=== PATIENT | male | born 1995 ===

== ENCOUNTER 2018-12-17 17:31 | Emergency (ER) | payer BC ==
[2018-12-17 18:18] VITALS: BP 121/65
[2018-12-17 19:00] LABS: Influenza A Molecular NEGATIVE (Negative); Influenza B Molecular NEGATIVE (Negative)
--- NOTE | 2018-12-17 19:00 | UC ---
FLU HPI - HPI Summary HPI Summary: 23-year-old male presents onset of general malaise, fatigue, mild headache and body aches this morning. Denies fever, chills, rash, nasal congestion, runny nose, sore throat, ear pain, cough, abdominal pain, nausea, vomiting, diarrhea, dysuria, frequency, urgency, or recent tick bite. - History of Current Complaint Chief Complaint: UCRespiratory Stated Complaint: FEVER Time Seen by Provider: 12/17/18 18:13 Hx Obtained From: Patient Pain Intensity: 7 - Allergy/Home Medications Allergies/Adverse Reactions: Allergies Allergy/AdvReac Type Severity Reaction Status Date / Time No Known Allergies Allergy Verified 12/17/18 18:18 Home Medications: Home Medications Ibuprofen TAB* [Advil TAB*] 400 mg PO Q6HR PRN 12/17/18 [History Confirmed 12/17] PMH/Surg Hx/FS Hx/Imm Hx Previously Healthy: Yes - Denies signignificant PMH - Surgical History Surgical History: None - Family History Known Family History: Positive: Non-Contributory - Social History Occupation: Employed Full-time Lives: With Family Alcohol Use: Occasionally Substance Use Type: None Smoking Status (MU): Former Smoker When Did the Patient Quit Smoking/Using Tobacco: one year ago Review of Systems All Other Systems Reviewed And Are Negative: Yes Constitutional: Positive: Fatigue, Other - Malaise. Negative: Fever, Chills Skin: Negative: Rash ENT: Negative: Sore Throat, Ear Ache, Nasal Discharge, Sinus Congestion Respiratory: Negative: Shortness Of Breath, Cough Cardiovascular: Negative: Palpitations, Chest Pain Gastrointestinal: Negative: Abdominal Pain, Vomiting, Diarrhea, Nausea Genitourinary: Negative: Dysuria, Hematuria, Frequency, Urgency Musculoskeletal: Negative: Arthralgia, Myalgia Neurological: Positive: Headache Is Patient Immunocompromised?: No Physical Exam - Summary Physical Exam Summary: GENERAL APPEARANCE: Well developed, well nourished, alert and cooperative, and appears to be in no acute distress. EYES: Conjunctiva clear. No drainage. Vision is grossly intact. EARS: External auditory canals and tympanic membranes clear, hearing grossly intact. NOSE: No nasal discharge. THROAT: Pharynx normal. No tonsilar inflammation, swelling, exudate, or lesions. Uvula midline. Oral cavity normal. Teeth and gingiva in good general condition. NECK: Neck supple, non-tender without lymphadenopathy. CARDIAC: Normal S1 and S2. No S3, S4 or murmurs. Rhythm is regular. There is no peripheral edema, cyanosis or pallor. Extremities are warm and well perfused. Capillary refill is less than 2 seconds. Peripheral pulses intact. LUNGS: Clear to auscultation without rales, rhonchi, wheezing or diminished breath sounds. ABDOMEN: Positive bowel sounds. Soft, nondistended, nontender. No guarding or rebound. No masses or hepatosplenomegally. MUSKULOSKELETAL: ROM intact to all extremities. No joint erythema or tenderness. Normal muscular development. Normal gait. SKIN: Skin normal color, texture and turgor with no lesions or eruptions. Triage Information Reviewed: Yes Vital Signs: Initial Vital Signs Temp 100.9 F 12/17/18 18:11 Pulse 78 12/17/18 18:11 Resp 14 12/17/18 18:11 BP 121/65 12/17/18 18:11 Pulse Ox 100 12/17/18 18:11 Vital Signs Reviewed: Yes Flu Course/Dx - Course Course Of Treatment: 23-year-old male presents onset of general malaise, fatigue, mild headache and body aches this morning. Denies fever, chills, rash, nasal congestion, runny nose, sore throat, ear pain, cough, abdominal pain, nausea, vomiting, diarrhea, dysuria, frequency, urgency, or recent tick bite. Patient had a mildly elevated temperature of 100.3 F. Vital signs were stable. Over all his exam was unremarkable. Rapid flu test was negative. Recommending symptomatic treatment for a viral syndrome. He is to return here or follow up with primary care in 1 week if symptoms do not improve. Anticipatory guidance and warning symptoms were reviewed with the patient. Verbalizes understanding and agrees with plan of care. - Differential Dx/Diagnosis Differential Diagnosis/HQI/PQRI: Bronchitis, Influenza, Pneumonia, Upper Respiratory Infection Provider Diagnosis: Viral syndrome Discharge - Sign-Out/Discharge Documenting (check all that apply): Patient Departure All imaging exams completed and their final reports reviewed: No Studies - Discharge Plan Condition: Stable Disposition: HOME Patient Education Materials: Viral Syndrome (ED) Forms: *Work Release Referrals: No Primary Care Phys,NOPCP [Primary Care Provider] - Additional Instructions: The rapid flu test performed in the clinic today was negative. Your history and exam are consistent with a viral infection. Viral infections do not respond to antibiotics and are limited to the treatment of symptoms. Viral infections typically run their course in 7-10 days with the first 3-5 days being the worst of the symptoms. Get plenty of rest. Drink plenty of fluids to avoid dehydration especially if you are running any fever. Take over the counter acetaminophen (Tylenol) or ibuprofen (Advil, Motrin) according to directions as needed for pain or fever. Use salt water gargles several times a day if you have a sore throat. Use an over the counter decongestant such as Sudafed if you are having any congestion. Return here or follow up with your primary care provider in 7 days if symptoms persist. Seek immediate medical attention in the emergency room if you have fever greater than 100.5 F despite taking acetaminophen or ibuprofen, have chest pain , difficulty breathing, are unable to swallow, or have any worsening of symptoms. - Billing Disposition and Condition Condition: STABLE Disposition: Home
== END 2018-12-17 19:15 | disposition home or self-care (01) ==
LOC: UCEAST 17:31
DX: B34.9 Viral infection, unspecified (principal); Z87.891 Personal history of nicotine dependence
CPT/HCPCS: 99201; G0463

== ENCOUNTER 2019-11-09 13:28 | Emergency (ER) | payer BC ==
--- OUTSIDE RECORDS SUMMARY | 2019-11-09 14:41 | XMS REPORT | Continuity of Care Document ---
:1995 External Reference #:[id number] Author Name Leroy Jonse NP (transmitted by agent of provider Elena Dooley) Address [address] [facility], [place] [address] Care Team Providers Name Role Phone Leroy Jones NP - Internal Medicine Care Team Information Librarian Head Problems Description No Information Available Social History Type Date Description Comments Sex Unknown Tobacco Use Start: Unknown [place] ETOH Use Currently consumes two drinks weekly alcohol Tobacco Use Start: Unknown Patient has never smoked Smoking Status Reviewed: 09/16/19 Patient has never smoked Exercise Exercises regularly Type/Frequency Allergies, Adverse Reactions, Alerts Description No Known Drug Allergies Medications Active Medications SIG Qnty Indications Ordering Provider Date Amoxicillin/Clavulana take one tablet 20tabs J01.90 Leroy Jones NP 2019 te Potassium q12 hours for 10 875-125mg days Tablets History Medications No Active Medications Unknown 04/17/2019 - 09/16/2019 Immunizations Description No Information Available Vital Signs Date Vital Result Comment 09/16/2019 11:00am Height 69 inches 5'9" Weight 189.00 lb Heart Rate 97 /min BP Systolic 131 mmHg BP Diastolic 72 mmHg Body Temperature 97.3 F O2 % BldC Oximetry 97 % BMI (Body Mass Index) 27.9 kg/m2 04/17/2019 9:50am Height 69 inches 5'9" Weight 188.50 lb Heart Rate 70 /min BP Systolic 114 mmHg BP Diastolic 69 mmHg Body Temperature 97.9 F O2 % BldC Oximetry 98 % BMI (Body Mass Index) 27.8 kg/m2 Results Test Acquired Date Facility Test Result H/L Range Note Lipid Profile 04/10/2019 [facility] Triglycerides 123 mg/dL 1 (Trig/Chol/HDL) [address] [place] [address] [phone] Cholesterol 185 mg/dL 2 HDL Cholesterol 43.4 mg/dL 3 LDL Cholesterol 117 mg/dL 4 Laboratory test 04/10/2019 [facility] Glucose 86 mg/dL Normal 70-100 finding [address] [place] [address] [phone] 1 Desirable: <150 Borderline High: 150-199 High: 200-499 Very High: >500 2 Desirable: <200 Borderline High: 200-239 High: >239 3 Low: <40 Desirable: 40-60 High: >60 4 Desirable: <100 Near Optimal: 100-129 Borderline High: 130-159 High: 160-189 Very High: >189 Procedures Description No Information Available Medical Devices Description No Information Available Encounters Type Date Location Provider Dx Diagnosis Office Visit 07/30/2019 11:30a 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 A decongestant, such as Sudafed, may help reduce sinus pain and pressure.Follow up :PRN Functional Status Description No Information Available Mental Status Description No Information Available Referrals Description No Information Available
[2019-11-09 14:47] VITALS: BP 131/69
[2019-11-09 15:00] LABS: Influenza A Molecular POSITIVE (Negative)
--- NOTE | 2019-11-09 15:11 | UC ---
FLU HPI - HPI Summary HPI Summary: C/O cough x 2 days. Worse since yesterday with wheezing. C/O fevers/ fatigue and body aches. - History of Current Complaint Stated Complaint: FEVER, ACHY, COUGH Hx Obtained From: Patient Onset/Duration: Sudden Onset, Lasting Days - 2, Worse Since - yesterday Severity Currently: Severe Severity Initially: Moderate Pain Intensity: 0 Associated Signs & Symptoms: Positive: Fever, Myalgia, Cough, Sore Throat, Nasal Congestion, Headache Related Hx: Possible Flu/Infectious Exposure - Allergy/Home Medications Allergies/Adverse Reactions: Allergies Allergy/AdvReac Type Severity Reaction Status Date / Time seasonal Allergy Congestion Uncoded 11/09/19 14:48 Home Medications: Home Medications Ibuprofen TAB* [Advil TAB*] 400 mg PO Q6HR PRN 12/17/18 [History Confirmed 11/08] Oseltamivir CAP* [Tamiflu CAP*] 75 mg PO BID #10 cap 11/09/19 [Rx] predniSONE 20 mg TAB [Deltasone 20 MG TAB*] 60 mg PO DAILY #18 tab 11/09/19 [Rx] PMH/Surg Hx/FS Hx/Imm Hx Previously Healthy: Yes - Surgical History Surgical History: None - Family History Known Family History: Positive: Diabetes - Social History Occupation: Employed Full-time Lives: Alone Alcohol Use: Occasionally Substance Use Type: None Smoking Status (MU): Current Some Day Smoker When Did the Patient Quit Smoking/Using Tobacco: one year ago Review of Systems All Other Systems Reviewed And Are Negative: Yes Constitutional: Positive: Fever, Chills, Fatigue ENT: Positive: Sore Throat Respiratory: Positive: Shortness Of Breath, Cough Musculoskeletal: Positive: Myalgia Neurological/Mental Status: Positive: Headache Physical Exam Triage Information Reviewed: Yes Appearance: No Pain Distress, Well-Nourished, Ill-Appearing Vital Signs: Initial Vital Signs Temp 100.1 F 11/09/19 14:42 Pulse 98 11/09/19 14:42 Resp 17 11/09/19 14:42 BP 131/69 11/09/19 14:42 Pulse Ox 98 11/09/19 14:42 Vital Signs Reviewed: Yes Eyes: Positive: Conjunctiva Inflamed ENT: Positive: Pharynx normal, TMs normal Neck exam: Normal Respiratory: Positive: Wheezing - diffuse end inspiratory wheeze and scattered end expiratory wheeze Cardiovascular Exam: Normal Musculoskeletal Exam: Normal Neurological Exam: Normal Psychological Exam: Normal Skin Exam: Normal Diagnostics - Laboratory Lab Results: Rapid flu Positive Flu A Flu Course/Dx - Differential Dx/Diagnosis Differential Diagnosis/HQI/PQRI: Bronchitis, Influenza, Pneumonia, Upper Respiratory Infection Provider Diagnosis: Influenza A, Acute bronchospasm Discharge ED - Sign-Out/Discharge Documenting (check all that apply): Patient Departure All imaging exams completed and their final reports reviewed: No Studies - Discharge Plan Condition: Stable Disposition: HOME Prescriptions: Oseltamivir CAP* [Tamiflu CAP*] 75 mg PO BID #10 cap predniSONE 20 mg TAB [Deltasone 20 MG TAB*] 60 mg PO DAILY #18 tab Patient Education Materials: Influenza (ED), Bronchospasm (ED) Forms: *Work Release Referrals: Leroy Jones NP [Primary Care Provider] - - Billing Disposition and Condition Condition: STABLE Disposition: Home
== END 2019-11-09 15:18 | disposition home or self-care (01) ==
LOC: UCCORT 13:28
DX: J10.1 Influenza due to other identified influenza virus with other respiratory manifestations (principal); J98.01 Acute bronchospasm; F17.200 Nicotine dependence, unspecified, uncomplicated; Z91.09 Other allergy status, other than to drugs and biological substances
CPT/HCPCS: 99212; G0463